=== PATIENT | male | born 1960 | race Caucasian/White ===

== ENCOUNTER 2019-09-12 00:46 | Day surgery (SDC) | payer OTHER, SELFPAY ==
[2019-09-10 14:05] VITALS: BMI 48.0
[2019-09-12 07:53] VITALS: BP 147/77; PULSE 64; TEMP 36.7; O2SAT 100; BMI 47.7
[2019-09-12] MEDS: LACTATED RINGERS 1,000 ML 150 ML IV CONT (08:05)
[2019-09-12 08:07] LABS: Glucose Point of Care 120 (65-105)
--- NOTE | 2019-09-12 08:10 | WPDANESEPPF ---
Anes - Initial Pre Proc Eval Procedure: Operation Date: 09/12/19 08:30 Proposed Procedures p Screening Colonoscopy - Hernando Jones MD Date/Time: 09/12/19 08:10 Surgeon: Hernando Jones MD Pre Op Diagnosis: Neoplasm Screening and Hx Colon Polyps Patient Data Age: 58 Gender: M Height: 5 ft 9 in Weight: 146.6 kg Last Vital Signs Temp 98.0 F 09/12/19 07:53 Pulse 64 09/12/19 07:53 BP 147/77 H 09/12/19 07:53 Pulse Ox 100 09/12/19 07:53 Allergies Allergy/AdvReac Type Severity Reaction Status Date / Time No Known Allergies Allergy Unknown Verified 09/12/19 07:50 Home Medications Medication Instructions Recorded Confirmed Type ascorbate calcium (vitamin C) 500 500 mg PO DAILY 06/12/19 09/12/19 History mg tablet cholecalciferol (vitamin D3) 25 1,000 unit PO DAILY 06/12/19 09/12/19 History mcg (1,000 unit) capsule rosuvastatin 10 mg tablet 5 mg PO DAILY 06/12/19 09/12/19 History sitagliptin 50 mg-metformin 1,000 1 tablet PO BID #180 tablet 07/25/19 09/12/19 Rx mg tablet benazepril 20 mg tablet 20 mg PO DAILY #90 tablet 07/30/19 09/12/19 Rx aspirin [Aspirin Low Dose] 81 mg PO DAILY 09/10/19 09/12/19 History mecobalamin (vitamin B12) 1,000 mcg PO DAILY 09/10/19 09/12/19 History thuxzcdu-bof-bxarc-vit K-lycop 1 tablet PO DAILY 09/10/19 09/12/19 History [One-A-Day Men's 50 Plus] Laboratory Tests 09/12/19 08:04 POC Capillary Glucose 120 mg/dl H mg/dl (65-105) Patient hx anesthesia problems: none Family hx anesthesia problems: none PMFSH Past Medical History Medical History (Updated 09/12/19 @ 08:09 by Louis Soto MD) Acute sinusitis Essential hypertension GERD (gastroesophageal reflux disease) Microalbuminuria due to type 2 diabetes mellitus Mixed hyperlipidemia Obstructive sleep apnea (adult) (pediatric) Tubular adenoma Social History Social History Smoking status: Current every day smoker Alcohol intake: never Anes - Eval Final PreProcedure Day of Procedure 09/12/19 08:10 Patient weight: morbidly obese Heart: regular rate and rhythm Lungs: clear to auscultation Airway: Mallampati scale class III Neurological: alert and oriented Last oral intake: >/= 8 hours ASA classification: IV Emergent: no Anesthetic plan: proceed Anesthesia type and monitoring: general GIVS and standard monitoring Informed Consent: The patient's anesthetic plan and its attendant risks and benefits were discussed with the patient/family/POA. Questions were solicited and answers provided to the satisfaction of the patient/family/POA.
--- NOTE | 2019-09-12 08:39 | WPDGICN ---
Assessment and Plan Assessment and plan (1) Personal history of colonic polyps: Code(s): Z86.010 - Personal history of colonic polyps Status: Chronic Assessment and Plan: Patient has a history of adenomatous colon polyp removed from the colon 2014. His current weight appetite bowel movements are normal. Family history is reported that his mother had colon polyps as well. Plan is for screening colonoscopy now on at 5 year intervals in the future. (2) Morbid obesity with body mass index (BMI) of 40.0 or higher: Code(s): E66.01 - Morbid (severe) obesity due to excess calories Status: Chronic GI Consult Note Consult date/time: 09/12/19 08:39 HPI: Gloria Littlejohn is a 58 year old male Seen in evaluation at the request of Dr. Palmer Shah. Patient presents for colonoscopy. He has a history of colon polyps 5 years ago. His current weight appetite bowel movements are normal. He denies abdominal pain. He has no blood in his stools. Family history is significant as mother had colon polyps. Review of Systems Review of Systems: All systems reviewed & are unremarkable except as noted in HPI and below PMFSH Past Medical History Medical History Acute sinusitis Essential hypertension GERD (gastroesophageal reflux disease) Microalbuminuria due to type 2 diabetes mellitus Mixed hyperlipidemia Obstructive sleep apnea (adult) (pediatric) Tubular adenoma Family History Family History Father Hypertension Grandparent Acute myocardial infarction Family history of coronary artery disease Other Diabetes mellitus Family history of cardiovascular disease Social History Social History Smoking status: Current every day smoker Alcohol intake: never Meds Home Medications and Allergies Home Medications Medication Instructions Recorded Confirmed Type ascorbate calcium (vitamin C) 500 500 mg PO DAILY 06/12/19 09/12/19 History mg tablet cholecalciferol (vitamin D3) 25 1,000 unit PO DAILY 06/12/19 09/12/19 History mcg (1,000 unit) capsule rosuvastatin 10 mg tablet 5 mg PO DAILY 06/12/19 09/12/19 History sitagliptin 50 mg-metformin 1,000 1 tablet PO BID #180 tablet 07/25/19 09/12/19 Rx mg tablet benazepril 20 mg tablet 20 mg PO DAILY #90 tablet 07/30/19 09/12/19 Rx aspirin [Aspirin Low Dose] 81 mg PO DAILY 09/10/19 09/12/19 History mecobalamin (vitamin B12) 1,000 mcg PO DAILY 09/10/19 09/12/19 History xhouomwt-ags-eqqsv-vit K-lycop 1 tablet PO DAILY 09/10/19 09/12/19 History [One-A-Day Men's 50 Plus] Allergies Allergy/AdvReac Type Severity Reaction Status Date / Time No Known Allergies Allergy Unknown Verified 09/12/19 07:50 Vital Signs Vital Signs - 24 hr 09/12/19 07:53 Temperature 36.7 C Pulse Rate 64 Blood Pressure 147/77 H Pulse Oximetry 100 Exam Narrative: Exam Narrative: Physical exam reveals vital signs stable. HEENT exam unremarkable. He is anicteric. Lungs are clear to auscultation and percussion. Heart is without murmur or extra sounds. Abdominal exam is obese. Bowel sounds are present. Some abdomen is soft and nontender. No organomegaly appreciated. Digital external rectal exam is normal.
[2019-09-12 08:55] VITALS: BP 118/60; PULSE 71; RESP 18; O2SAT 98
[2019-09-12 09:05] VITALS: BP 115/63; PULSE 68; RESP 18; O2SAT 98
[2019-09-12 09:15] VITALS: BP 133/71; PULSE 68; RESP 20; O2SAT 96
== END 2019-09-12 09:39 | disposition home or self-care (01) ==
PROVIDERS: PCP Family Medicine; Visit Provider Internal Medicine Gastroenterology
PROC: 0DJD8ZZ Inspection of Lower Intestinal Tract, Via Natural or Artificial Opening Endoscopic (ICD-10-PCS; CPT 45378; principal; 2019-09-12 08:30)
DX: Z12.11 Encounter for screening for malignant neoplasm of colon (principal); K63.5 Polyp of colon; K57.30 Diverticulosis of large intestine without perforation or abscess without bleeding; K64.8 Other hemorrhoids; Z83.71 Family history of colonic polyps; I10 Essential (primary) hypertension; E78.2 Mixed hyperlipidemia; G47.33 Obstructive sleep apnea (adult) (pediatric); K21.9 Gastro-esophageal reflux disease without esophagitis; R80.8 Other proteinuria; F17.210 Nicotine dependence, cigarettes, uncomplicated; Z79.84 Long term (current) use of oral hypoglycemic drugs; Z79.82 Long term (current) use of aspirin; E66.01 Morbid (severe) obesity due to excess calories; Z68.42 Body mass index [BMI] 45.0-49.9, adult
CPT/HCPCS: 45378; J2704; J7120

== ENCOUNTER 2025-04-09 00:19 | Day surgery (SDC) | payer BC, SELFPAY ==
[2025-03-27 09:54] VITALS: BMI 43.6
--- OUTSIDE RECORDS SUMMARY | 2025-04-09 00:22 | XMS_ITS | Clinical Summary ---
Author Organization [facility] Address [address] [place] [address] Care Team Providers Care Pressurization Mechanic Name Role Phone Unavailable Primary Care Provider Unavailabl e Immunizations Immunization Administration Dates Next Due Covid-19, Mrna, Lnp-s, PF, 5 0 mcg/0.25 mL dose (Moderna) 06/23/2021 Social History Tobacco Use Types Packs/Day Years Used Date Smoking Tobacco: Never Assessed Sex and Gender Information Value Date Recorded Sex Assigned at Not on file Legal Sex Male 11:10 AM [employer] Gender Identity Not on file Sexual Orientation Not on file Plan of Treatment Health Maintenance Due Date Last Done Comments Hepatitis C Virus (HCV) Screening 1960 TdaP Immunization 1960 Cologuard 12/24/2003 Colonoscopy 12/24/2003 Colorectal Cancer Screening 12/24/2003 Immunochemical Fecal Occult Blood 12/24/2003 Pneumococcal Immunization (5 0+ years) (2 of 2 - PCV) 08/16/2020 08/16/2019 Influenza Immunization (#1) 03/04/202504/03, 04/26/2019 SARS-COV-2 Immunization ( season) 2025 06/23/2021, 09/13/2020, 08/16/2020 Respiratory Syncytial Virus (RSV) Immunization (Adult) (1 - 1-dose 75+ series) 2033 Zoster Immunization Completed 07/10/2019, 04/19/2019 Pneumococcal Immunization Combined Discontinued 08/16/2019 Hepatitis B Immunization Aged Out No longer eligible based on patient's age to complete this topic Human Papillomavirus (HPV) Immunization Aged Out No longer eligible based on patient's age to complete this topic Meningococcal Immunization (ACWY) Aged Out No longer eligible based on patient's age to complete this topic Rotavirus Immunization Aged Out No lo nger eligible based on patient's age to complete this topic
[2025-04-09 06:17] VITALS: BP 142/62; PULSE 70; RESP 18; TEMP 36.3; O2SAT 98; BMI 43.6
[2025-04-09] MEDS: LACTATED RINGERS 1,000 ML 150 ML IV CONT (06:21)
--- NOTE | 2025-04-09 07:04 | WPDANESEPPF ---
Anes - Initial Pre Proc Eval Procedure: Operation Date: 04/09/25 07:30 Proposed Procedures p Screening Colonoscopy - Colten Mccrary MD Date/Time: 04/09/25 07:04 Surgeon: Colten Mccrary MD Pre Op Diagnosis: Personal history of colon polyps, unspecified Patient Data Age: 64 Gender: M Height: 1.75 m Weight: 134.09 kg Last Vital Signs Temp 36.3 C L 04/09/25 06:17 Pulse 70 04/09/25 06:17 Resp 18 04/09/25 06:17 BP 142/62 H 04/09/25 06:17 Pulse Ox 98 04/09/25 06:17 O2 Del Method Room Air 04/09/25 06:17 Allergies Allergy/AdvReac Type Severity Reaction Status Date / Time No Known Allergies Allergy Unknown Verified 04/09/25 06:16 Home Medications ?Medication ?Instructions ?Recorded ?Confirmed ?Type ascorbate calcium (vitamin C) 500 500 mg PO DAILY 06/12/19 04/09/25 History mg tablet cholecalciferol (vitamin D3) 25 1,000 unit PO DAILY 06/12/19 04/09/25 History mcg (1,000 unit) capsule aspirin 81 mg tablet,delayed 81 mg PO DAILY 09/10/19 04/09/25 History release (Hermelindo Low Dose Aspirin) mecobalamin (vitamin B12) 1,000 1,000 mcg PO DAILY 09/10/19 04/09/25 History mcg chewable tablet svrupwjgzvzu-lgi-tcfmv acid-vit 1 tablet PO DAILY 09/10/19 04/09/25 History K-lycop 400 mcg-20 mcg-370 mcg tablet (One-A-Day Men's 50 Plus (with vitamin K)) empagliflozin 25 mg-metformin ER 1 tablet PO QAM #90 ea 05/17/24 04/09/25 Rx 1,000 mg tablet,extended release 24hr (Synjardy XR) rosuvastatin 10 mg tablet See Rx Instructions .Route 10/24/24 04/09/25 Rx .COMPLEX #90 tabs tirzepatide 7.5 mg/0.5 mL 7.5 mg (0.5 mL) subcut WEEKLY #2 mL 12/24/24 04/09/25 Rx subcutaneous pen injector (Mounjaro) benazepril 20 mg tablet See Rx Instructions .Route 02/25/25 04/09/25 Rx .COMPLEX #90 tabs Laboratory Tests 04/09/25 06:29 POC Capillary Glucose 107 H mg/dl (65-105) Patient hx anesthesia problems: none Family hx anesthesia problems: none Results Review: All pre-operative results and documents have been reviewed as part of the pre-operative evaluation. [facility] Past Medical History Medical History (Updated 04/08/25 @ 09:53 by Benedicto Quinn DO) Type 2 diabetes mellitus with hyperglycemia Hypertension associated with chronic kidney disease due to type 2 diabetes mellitus History of chicken pox History of mumps History of measles GERD (gastroesophageal reflux disease) Mixed hyperlipidemia Obstructive sleep apnea (adult) (pediatric) Acute sinusitis Tubular adenoma Surgical History Surgical History History of tonsillectomy (~1964) Family History Family History Father Hypertension Mother No problems noted. Daughter No problems noted. Son Hypertension Other Diabetes mellitus Family history of cardiovascular disease Social History Social History Smoking packs per day: 2 Smoking cigarettes per day: 40.0 Years smoked: 20 Smoking pack-years: 40.00 Smoking status: Former smoker Tobacco type: cigarettes Smoking end date: 07/04/96 Alcohol intake: never Substance use: never Substance use type: does not use Do You Feel Safe in your Home?: Yes Lack of Transportation: No Lack of Food: Never True Current Housing: I Have Housing Concerned About Future Housing: No Difficulty Paying Gas/Electric Bills: No Difficulty Paying for Meds: No Currently Unemployed: No Education: High School Diploma/GED Difficulty w/ Childcare or Family Care: No Living arrangements: with family Spiritual care concerns: No Anes - Eval Final PreProcedure Day of Procedure 04/09/25 07:04 Patient weight: morbidly obese Heart: regular rate and rhythm Lungs: clear to auscultation Airway: Mallampati scale class II Neurological: alert and oriented Last oral intake: >/= 8 hours ASA classification: III Emergent: no Anesthetic plan: proceed Anesthesia type and monitoring: general GIVS and standard monitoring Results Review: All pre-operative results and documents have been reviewed as part of the pre-operative evaluation. Informed Consent: The patient's anesthetic plan and its attendant risks and benefits were discussed with the patient/family/POA. Questions were solicited and answers provided to the satisfaction of the patient/family/POA.
--- NOTE | 2025-04-09 07:32 | PM.HPGS ---
History of Present Illness History of Present Illness Consent: Risks, benefits, and alternatives have been discussed and questions answered. Patient agrees to proceed with procedure. Chief complaint: Personal history of colon polyps, unspecified Narrative: Gloria Littlejohn is a 64 year old male with colon polyp in 2019 Review of Systems Review of Systems: All systems reviewed & are unremarkable except as noted in HPI and below PMFSH Past Medical History Medical History (Updated 04/08/25 @ 09:53 by Benedicto Quinn DO) Type 2 diabetes mellitus with hyperglycemia Hypertension associated with chronic kidney disease due to type 2 diabetes mellitus History of chicken pox History of mumps History of measles GERD (gastroesophageal reflux disease) Mixed hyperlipidemia Obstructive sleep apnea (adult) (pediatric) Acute sinusitis Tubular adenoma Surgical History Surgical History History of tonsillectomy (~1964) Family History Family History Father Hypertension Mother No problems noted. Daughter No problems noted. Son Hypertension Other Diabetes mellitus Family history of cardiovascular disease Social History Social History Smoking packs per day: 2 Smoking cigarettes per day: 40.0 Years smoked: 20 Smoking pack-years: 40.00 Smoking status: Former smoker Tobacco type: cigarettes Smoking end date: 07/04/96 Alcohol intake: never Substance use: never Substance use type: does not use Do You Feel Safe in your Home?: Yes Lack of Transportation: No Lack of Food: Never True Current Housing: I Have Housing Concerned About Future Housing: No Difficulty Paying Gas/Electric Bills: No Difficulty Paying for Meds: No Currently Unemployed: No Education: High School Diploma/GED Difficulty w/ Childcare or Family Care: No Living arrangements: with family Spiritual care concerns: No Meds Home Medications and Allergies Home Medications ?Medication ?Instructions ?Recorded ?Confirmed ?Type ascorbate calcium (vitamin C) 500 500 mg PO DAILY 06/12/19 04/09/25 History mg tablet cholecalciferol (vitamin D3) 25 1,000 unit PO DAILY 06/12/19 04/09/25 History mcg (1,000 unit) capsule aspirin 81 mg tablet,delayed 81 mg PO DAILY 09/10/19 04/09/25 History release (Hermelindo Low Dose Aspirin) mecobalamin (vitamin B12) 1,000 1,000 mcg PO DAILY 09/10/19 04/09/25 History mcg chewable tablet suxpezopsntp-ojp-gcuro acid-vit 1 tablet PO DAILY 09/10/19 04/09/25 History K-lycop 400 mcg-20 mcg-370 mcg tablet (One-A-Day Men's 50 Plus (with vitamin K)) empagliflozin 25 mg-metformin ER 1 tablet PO QAM #90 ea 05/17/24 04/09/25 Rx 1,000 mg tablet,extended release 24hr (Synjardy XR) rosuvastatin 10 mg tablet See Rx Instructions .Route 10/24/24 04/09/25 Rx .COMPLEX #90 tabs tirzepatide 7.5 mg/0.5 mL 7.5 mg (0.5 mL) subcut WEEKLY #2 mL 12/24/24 04/09/25 Rx subcutaneous pen injector (Mounjaro) benazepril 20 mg tablet See Rx Instructions .Route 02/25/25 04/09/25 Rx .COMPLEX #90 tabs Allergies Allergy/AdvReac Type Severity Reaction Status Date / Time No Known Allergies Allergy Unknown Verified 04/09/25 06:16 Vital Signs Vital Signs - 24 hr 04/09/25 06:17 Temperature 97.3 F L Pulse Rate 70 Respiratory Rate 18 Blood Pressure 142/62 H Pulse Oximetry 98 Oxygen Delivery Room Air Exam Const: General: comfortable and no acute distress HENMT: Face/Nose/Sinus: Normal nares present Eyes: General: appearance normal, both eyes and all related structures Resp: Auscultation: clear to auscultation bilaterally Cardio: Rate: regular rate Rhythm: regular rhythm GI: Inspection: non-distended GI Palp: Yes Soft to palpation Skin: General skin exam: normal color Extrem: General: normal to inspection Psych: Mental Status: mental status grossly normal Assessment and Plan Assessment and plan (1) Personal history of colonic polyps: Code(s): Z86.010 - Personal history of colon polyps Status: Chronic Assessment and Plan: colonoscopy
--- NOTE | 2025-04-09 07:49 | S_PTH ---
PATIENT: Gloria Littlejohn LOC: [facility]#:[id number] AGE/SX: 64/M ROOM: RE04/09/[address]: Colten Mccrary MD : 1960 BED: DIS: 04/09/2025 SPEC #: [id number] RECD: 04/09/25 08:15 STATUS: DANN MARCH #: [id number] JOSE: 04/09/25 07:[address]: Colten Mccrary DEPT: [facility] Surgical RECD BY: Crystal Jiménez ENTERED: 04/09/25 08:16 SP TYPE: Surgical OTHR DR: Bre Shah MD Tissues: A - Colon Polypectomy B - Colon Polypectomy Procedures: Hematoxylin and Eosin Stain Gross and Microscopic Level 4
[2025-04-09 07:50] VITALS: BP 90/58; PULSE 73; RESP 16; O2SAT 98
[2025-04-09 08:00] VITALS: BP 99/55; PULSE 68; RESP 23; O2SAT 98
[2025-04-09 08:10] VITALS: BP 112/60; PULSE 66; RESP 15; O2SAT 99
== END 2025-04-09 08:20 | disposition home or self-care (01) ==
PROVIDERS: PCP Family Medicine; Referring Provider Student in an Organized Health Care Education/Training Program; Visit Provider Internal Medicine Gastroenterology
PROC: 0DJD8ZZ Inspection of Lower Intestinal Tract, Via Natural or Artificial Opening Endoscopic (ICD-10-PCS; CPT 45378; principal; 2025-04-09 07:30)
DX: Z12.11 Encounter for screening for malignant neoplasm of colon (principal); D12.0 Benign neoplasm of cecum; D12.3 Benign neoplasm of transverse colon; K57.30 Diverticulosis of large intestine without perforation or abscess without bleeding; K21.9 Gastro-esophageal reflux disease without esophagitis; E78.2 Mixed hyperlipidemia; G47.33 Obstructive sleep apnea (adult) (pediatric); E11.65 Type 2 diabetes mellitus with hyperglycemia; E11.22 Type 2 diabetes mellitus with diabetic chronic kidney disease; I12.9 Hypertensive chronic kidney disease with stage 1 through stage 4 chronic kidney disease, or unspecified chronic kidney disease; N18.9 Chronic kidney disease, unspecified; E66.01 Morbid (severe) obesity due to excess calories; Z68.41 Body mass index [BMI] 40.0-44.9, adult; Z79.82 Long term (current) use of aspirin; Z79.84 Long term (current) use of oral hypoglycemic drugs; Z79.85 Long-term (current) use of injectable non-insulin antidiabetic drugs; Z98.890 Other specified postprocedural states; Z87.891 Personal history of nicotine dependence; Z82.49 Family history of ischemic heart disease and other diseases of the circulatory system
CPT/HCPCS: 45380; 45385; 82948; 88305; J2704; J7120